=== PATIENT | male | born 1995 | race Caucasian/White ===

== ENCOUNTER 2022-08-29 13:35 | Emergency (ER) | payer OTHER, SELFPAY ==
--- NOTE | ~2022-08-29 | XR_ITS ---
EXAMINATION: XR CHEST CLINICAL INFORMATION: Cough, chest pain. COMPARISON: None TECHNIQUE: 2 views of the chest were obtained. FINDINGS: No significant abnormality is noted involving the heart, lungs, mediastinum, bony thorax or soft tissues. XR/XR chest 2V IMPRESSION: Unremarkable examination.
[2022-08-29 13:38] VITALS: BP 110/60; BP 123/74; PULSE 70; PULSE 71; RESP 18; TEMP 35.9; O2SAT 99; BMI 46.5
--- NOTE | 2022-08-29 13:48 | ED.GENADULT ---
HPI - General Adult General Chief complaint: General Medical Stated complaint: chest PAIN FLU + Time Seen by Provider: 08/29/22 13:48 History of Present Illness HPI narrative: Patient complains of chest pain over the last 2 days that he describes as a sharp pain that lasts anywhere from a few seconds to a couple minutes, it comes and goes, it is not related to anything it is not related to exertion there has been no diaphoresis or vomiting, he says he also does have some mild shortness of breath He has had a cough with sputum, including 1 episode of blood flecks sputum, there has been no leg pain no calf pain no leg swelling He has had body aches and some fatigue over the last several days he took a negative COVID test several days ago, he has felt feverish but did not check his temperature He has had COVID 2 years ago and has not been immunized Related Data Previous Rx's Medication Instructions Recorded nirmatrelvir 300 mg (150 mg See Rx Instructions PO .COMPLEX 08/29/22 x2)-ritonavir 100 mg tablet,dose #30 ea pack(EUA) (Paxlovid) Allergies Allergy/AdvReac Type Severity Reaction Status Date / Time No Known Allergies Allergy Verified 08/29/22 14:04 [facility] Past Medical History Source: nursing notes reviewed Social History Social History Advance Directives: No Advance Directives Information Provided: No Physical Exam ED Vital Signs: Vital Signs - 24 hr 08/29/22 13:38 Temperature 96.6 F L Pulse Rate 71 Respiratory Rate 18 Blood Pressure 123/74 Pulse Oximetry 99 Oxygen Delivery Method Room Air BMI result Body Mass Index 46.5 General appearance no acute distress Eyes are anicteric no pallor no redness no discharge The nose no sinus tenderness The pharynx is clear without redness swelling or exudate membranes moist Neck is supple Chest was clear to auscultation bilateral with symmetric equal breath sounds Heart no murmur auscultated Abdomen soft nontender Extremities no edema, no calf tenderness or swelling Skin no rash Course Course Course Narrative: COVID testing was positive Chest x-ray was normal EKG was normal sinus rhythm rate 70, SC interval and QRS duration were normal, QT was normal, no acute acute ST-T changes, no acute ischemic changes Lab evaluation was nondiagnostic with a normal troponin Perc score was 0 Patient with COVID with otherwise nondiagnostic workup is given prescription for paxlovid and was discharged from emergency room breathing comfortably ambulating easily and advised to return anything worse Medical Decision Making Lab Data 08/29/22 14:24 08/29/22 14:24 Labs: Lab Results 08/29/22 08/29/22 08/29/22 Range/Units 14:24 14:24 14:24 WBC 4.2 L (4.8-10.8) X10*3/uL RBC 5.02 (4.60-5.80) X10*6/uL Hgb 14.0 (14.0-18.0) g/dl Hct 42.9 (42.0-52.0) % MCV 85.5 (80.0-98.0) fL MCH 27.9 (27.0-33.0) pg MCHC 32.6 (31.0-36.0) g/dl RDW 13.1 (11.0-16.0) % Plt Count 190 (160-400) X10*3/uL MPV 10.5 (9.4-12.4) fL Immature Gran % (Auto) 0.2 (0.0-0.4) % Neut % (Auto) 51.4 (45-73) % Lymph % (Auto) 35.3 (20-40) % Sanders % (Auto) 11.0 (2-11) % Eos % (Auto) 1.9 (0-4) % Baso % (Auto) 0.2 (0-2) % Lymph # (Auto) 1.5 (1.2-4.9) X10*3/uL Sanders # (Auto) 0.5 (0.1-1.2) X10*3/uL Eos # (Auto) 0.1 (0.0-0.4) X10*3/uL Baso # (Auto) 0.0 (0.0-0.2) X10*3/uL Abs Immat Gran (auto) 0.01 (0.00-0.03) X10*3/uL Absolute Neuts (auto) 2.1 (2.0-8.3) x10*3/uL Absolute Nucleated RBC 0.000 (0.0-0.012) X10*3/uL Nucleated RBC % (auto) 0.0 (0.0-0.2) /100WBC Sodium 139 (135-145) mmol/L Potassium 4.1 (3.3-5.1) mmol/L Chloride 107 (96-108) mmol/L Carbon Dioxide 25 (22-29) mmol/L Anion Gap 11 L (12-20) BUN 10 (9-16) mg/dL Creatinine 0.90 (0.5-1.4) mg/dL Estim Creat Clear Calc 172.1 Estimated GFR > 60 Random Glucose 85 (60-115) mg/dL Calcium 8.8 (8.4-10.2) mg/dL Troponin I High Sens < 3.5 (<3.5-35.0) ng/L COVID-19 ([facility]) (Negative) COVID-19 Clin Com Influenza Type A ([facility]) (Negative) Influenza Type B ([facility]) (Negative) Influenza A & B Note 08/29/22 08/29/22 Range/Units 14:24 14:24 WBC (4.8-10.8) X10*3/uL RBC (4.60-5.80) X10*6/uL Hgb (14.0-18.0) g/dl Hct (42.0-52.0) % MCV (80.0-98.0) fL MCH (27.0-33.0) pg MCHC (31.0-36.0) g/dl RDW (11.0-16.0) % Plt Count (160-400) X10*3/uL MPV (9.4-12.4) fL Immature Gran % (Auto) (0.0-0.4) % Neut % (Auto) (45-73) % Lymph % (Auto) (20-40) % Sanders % (Auto) (2-11) % Eos % (Auto) (0-4) % Baso % (Auto) (0-2) % Lymph # (Auto) (1.2-4.9) X10*3/uL Sanders # (Auto) (0.1-1.2) X10*3/uL Eos # (Auto) (0.0-0.4) X10*3/uL Baso # (Auto) (0.0-0.2) X10*3/uL Abs Immat Gran (auto) (0.00-0.03) X10*3/uL Absolute Neuts (auto) (2.0-8.3) x10*3/uL Absolute Nucleated RBC (0.0-0.012) X10*3/uL Nucleated RBC % (auto) (0.0-0.2) /100WBC Sodium (135-145) mmol/L Potassium (3.3-5.1) mmol/L Chloride (96-108) mmol/L Carbon Dioxide (22-29) mmol/L Anion Gap (12-20) BUN (9-16) mg/dL Creatinine (0.5-1.4) mg/dL Estim Creat Clear Calc Estimated GFR Random Glucose (60-115) mg/dL Calcium (8.4-10.2) mg/dL Troponin I High Sens (<3.5-35.0) ng/L COVID-19 ([facility]) Positive A (Negative) COVID-19 Clin Com See Note Influenza Type A ([facility]) Negative (Negative) Influenza Type B ([facility]) Negative (Negative) Influenza A & B Note See Note Discharge Plan Discharge Clinical Impression: COVID-19 Patient Disposition: Home, Self-Care Additional Instructions: You tested positive for COVID Chest x-ray was normal and EKG was normal and other blood work was normal I called in a prescription for paxlovid which treats COVID and almost always prevent hospitalization You could use Tylenol and or Motrin as needed for body aches and discomfort COVID breathing exercises are sometimes helpful, you can check the you to video I showed Return any time any difficulty breathing any worse condition or any concerns As COVID is very contagious I put you off work for the next week Prescriptions: New Paxlovid (EUA) 300 mg (150 mg x 2)-100 mg tablets,dose pack See Rx Instructions .ROUTE .COMPLEX Qty: 30 0RF Rx Instructions: take TWO 150 mg tablets of nirmatrelvir with ONE 100 mg tablet of ritonavir twice daily for 5 days Stand Alone Forms: Substance Abuse Outpt Detox, Work/School Release Interventions: ED Discharge Assessment Last Done: 08/29/22 15:12 Discharge Date/Time: 08/29/22 15:12
--- NOTE | 2022-08-29 14:05 | ECG_ITS ---
Test Reason : CP Blood Pressure : / mmHG Vent. Rate : 070 BPM Atrial Rate : 070 BPM P-R Int : 124 ms QRS Dur : 094 ms QT Int : 386 ms P-R-T Axes : -15 037 021 degrees QTc Int : 416 ms Normal sinus rhythm with sinus arrhythmia Normal ECG No previous ECGs available Referred By: Gurwinder Bingham Electronically Signed By:VLADISLAV RODRIGUES MD
[2022-08-29 14:29] LABS: MANUAL DIFF FLAG NO
[2022-08-29 14:31] LABS: Basophils Percent Auto 0.2 % (0-2); Eosinophils Absolute Auto 0.1 X10*3/uL (0.0-0.4); Eosinophils Percent Auto 1.9 % (0-4); Hematocrit 42.9 % (42.0-52.0); Imm Gran Abs Auto 0.01 X10*3/uL (0.00-0.03); Imm Gran Pct Auto 0.2 % (0.0-0.4); Lymphocytes Absolute Auto 1.5 X10*3/uL (1.2-4.9); Lymphocytes Percent Auto 35.3 % (20-40); Mean Corpuscular HGB Conc 32.6 g/dl (31.0-36.0); Mean Corpuscular Hemoglobin 27.9 pg (27.0-33.0); Mean Corpuscular Volume 85.5 fL (80.0-98.0); Mean Platelet Volume 10.5 fL (9.4-12.4); Monocytes Absolute Auto 0.5 X10*3/uL (0.1-1.2); Neutrophils Absolute Auto 2.1 x10*3/uL (2.0-8.3); Neutrophils Percent Auto 51.4 % (45-73); Platelet Count 190 X10*3/uL (160-400); Red Blood Count 5.02 X10*6/uL (4.60-5.80); Red Cell Distribution Width 13.1 % (11.0-16.0); White Blood Count 4.2 X10*3/uL (4.8-10.8)
[2022-08-29 14:37] LABS: COVID-19 Test Positive (Negative); IDNOW Serial# 16C4AD1C
[2022-08-29 14:45] LABS: IDNOW Serial# BCCEAD1C; Influenza A Negative (Negative); Influenza B2 Negative (Negative)
[2022-08-29 14:46] LABS: Anion Gap 11 (12-20); Blood Urea Nitrogen 10 mg/dL (9-16); Calcium 8.8 mg/dL (8.4-10.2); Carbon Dioxide 25 mmol/L (22-29); Chloride 107 mmol/L (96-108); Creatinine Clr Calc Pharmacy 172.1; Estimated Glomerular Filt Rate > 60; Glucose Random 85 mg/dL (60-115); Potassium 4.1 mmol/L (3.3-5.1); Sodium 139 mmol/L (135-145)
[2022-08-29 14:55] LABS: Troponin-I High Sensitivity < 3.5 ng/L (<3.5-35.0)
== END 2022-08-29 15:12 | disposition home or self-care (01) ==
PROVIDERS: Physician Assistant Medical; Emergency Provider Emergency Medicine
DX: U07.1 COVID-19 (principal); R06.02 Shortness of breath
CPT/HCPCS: 36415; 71046; 80048; 84484; 85025; 87502; 87635; 93005; 99283

== ENCOUNTER 2023-05-09 08:20 | Emergency (ER) | payer SELFPAY ==
--- NOTE | ~2023-05-09 | XR_ITS ---
EXAMINATION: XR CHEST CLINICAL INFORMATION: Rule out pneumonia COMPARISON: Previous chest x-ray August 2022 TECHNIQUE: Frontal view of the chest was obtained. FINDINGS: No significant abnormality is noted involving the heart, lungs, mediastinum, bony thorax or soft tissues. XR/XR chest 1V IMPRESSION: Unremarkable examination.
--- NOTE | 2023-05-09 08:23 | ECG_ITS ---
Test Reason : CP Blood Pressure : / mmHG Vent. Rate : 087 BPM Atrial Rate : 087 BPM P-R Int : 118 ms QRS Dur : 098 ms QT Int : 356 ms P-R-T Axes : 020 040 032 degrees QTc Int : 428 ms Normal sinus rhythm Normal ECG When compared with ECG of 29-AUG-2022 14:16, No significant change was found Referred By: Generic ED Physician Electronically Signed By:GEE SERNA
[2023-05-09 08:26] VITALS: BP 132/78; PULSE 86; RESP 18; TEMP 37; O2SAT 97; BMI 30.4
--- NOTE | 2023-05-09 08:30 | ED.FEVER ---
HPI - Fever General Chief Complaint: General Medical Stated Complaint: body aches, dizzy, chest pain Time Seen by Provider: 05/09/23 08:24 Source: patient Mode of arrival: ambulatory Limitations: no limitations History of Present Illness HPI Narrative: patient comes to the emergency room complaining of diffuse body aches, cough, subjective fever starting couple of days ago. Patient states he has chest pain only when he coughs. Patient shortness of breath, no constant chest pain. Related Data Previous Rx's Medication Instructions Recorded nirmatrelvir 300 mg (150 mg See Rx Instructions PO .COMPLEX 08/29/22 x2)-ritonavir 100 mg tablet,dose #30 ea pack (Paxlovid) ibuprofen 600 mg tablet 600 mg PO TID PRN fever or pain 05/09/23 #14 tabs Allergies Allergy/AdvReac Type Severity Reaction Status Date / Time No Known Allergies Allergy Verified 08/29/22 14:04 Review of Systems Review of Systems: ?Constitutional : No Weight loss,? complaining of? subjective fever and chills, No Night Sweats,? complaining fatigue, generalized malaise ENT/Mouth : No Hearing loss, No Ear Pain, No Nasal Congestion, No Sinus Pain, No Hoarseness, No sore throat, No Rhinorrhea, No Swallowing Difficulty Eyes: No Eye Pain, No Swelling, No Redness, No Foreign Body, No Discharge, No Vision Changes Cardiovascular : No Chest Pain, No SOB, No Dyspnea on Exertion, No Orthopnea, No Edema, No Palpitations Respiratory : No Cough, No Sputum, No Wheezing, No Smoke Exposure, No Dyspnea Gastrointestinal : No Nausea, No Vomiting, No Diarrhea, No Constipation, No abdominal Pain, No Hematochezia, No Melena Genitourinary : no irregular bleeding, No Dysuria, No Urinary Frequency, No Hematuria, No Urinary Incontinence, No Urgency, No Flank Pain, No Urinary Flow Changes, No Hesitancy Musculoskeletal : No joint pain,? complaining of Myalgias, No Joint Swelling Skin : No Skin Lesions, No rash Neuro : No Weakness, No Numbness, No Paresthesias, No Loss of Consciousness, No Dizziness, No Headache Psych : No Anxiety/Panic, No Depression, No SI/HI/AH/VH, No Social Issues, Heme/Lymph: No Bruising, No Bleeding,No Lymphadenopathy Endocrine : No Polyuria, No Polydipsia, No Temperature Intolerance PMFSH Social History Social History Advance Directives: No Advance Directives Information Provided: No Physical Exam Vital Signs: Vital Signs: Last Vital Signs Temp 98.6 F 05/09/23 08:26 Pulse 86 05/09/23 08:26 Resp 18 05/09/23 08:26 BP 132/78 05/09/23 08:26 Pulse Ox 97 05/09/23 08:26 O2 Del Method Room Air 05/09/23 08:26 BMI result Body Mass Index 30.4 Const: Other: ?Appearance: Alert.? Oriented X3.? No acute distress.?? Eyes: Pupils equal, round and reactive to light.? ENT: Pharynx normal.? Neck: Normal inspection.? Neck supple. No lymph nodes noted. No crepitus CVS: Normal heart rate and rhythm.? Pulses normal. Normal S1 and S2 Respiratory: No respiratory distress.? Breath sounds normal. No Wheezing. No rales? Abdomen: Soft and nontender. No rigidity. No distention.? Skin: Skin warm clammy.? Normal skin color.? Normal skin turgor.? Extremities: No lower extremity edema. No Lacerations. No Rash Neuro: Oriented X 3.? No motor deficit.? No sensory deficit. Moving all extremities. No slurred speech. CN 2 through 12 grossly intact Psych: calm, cooperative, normal affect Course Course Course Narrative: - Patient's labs, EKG and chest x-ray pending Medical Decision Making Medical Decision Making MDM Narrative: patient tested negative for COVID influenza and strep. - My interpretation of chest x-ray: No pneumonia - discussed the results with the patient, patient likely has a viral illness. - patient's vitals are normal, no fever, sepsis not suspected Differential Diagnosis Differential Diagnoses: The differential diagnosis associated with the presentation includes ( Viral URI, COVID, influenza, pneumonia) Lab Data Labs: Lab Results 05/09/23 Range/Units 08:34 COVID-19 ([facility]) Negative (Negative) COVID-19 Clin Com See Note Influenza Type A ([facility]) Negative (Negative) Influenza Type B ([facility]) Negative (Negative) Influenza A & B Note See Note S. pyogenes GrpA [facility] Negative (Negative) Discharge Plan Discharge Clinical Impression: Viral illness Patient Disposition: Home, Self-Care Instructions: Viral Syndrome (ED) Additional Instructions: ?Please follow-up with your primary care physician tomorrow.? If you have any worsening or new symptoms, please return to the emergency room or call 911 Prescriptions: New ibuprofen 600 mg tablet 600 mg PO TID PRN (Reason: fever or pain) Qty: 14 0RF No Action Paxlovid 300 mg (150 mg x 2)-100 mg tablets,dose pack See Rx Instructions .ROUTE .COMPLEX Qty: 30 0RF Rx Instructions: take TWO 150 mg tablets of nirmatrelvir with ONE 100 mg tablet of ritonavir twice daily for 5 days
[2023-05-09 08:59] LABS: IDNOW Serial# 08D9AD1C; Strep A Nucleic Acid Negative (Negative)
[2023-05-09 09:00] LABS: COVID-19 Test Negative (Negative); IDNOW Serial# 9DB6401D; IDNOW Serial# BCCEAD1C; Influenza A Negative (Negative); Influenza B2 Negative (Negative)
== END 2023-05-09 09:48 | disposition home or self-care (01) ==
PROVIDERS: Emergency Provider Emergency Medicine
DX: B34.9 Viral infection, unspecified (principal); M79.10 Myalgia, unspecified site; R42 Dizziness and giddiness; R07.89 Other chest pain; R50.9 Fever, unspecified; Z20.822 Contact with and (suspected) exposure to COVID-19; Z20.828 Contact with and (suspected) exposure to other viral communicable diseases; Z79.899 Other long term (current) drug therapy
CPT/HCPCS: 71045; 87502; 87635; 87651; 93005; 99284